=== PATIENT | male | born 1940 | race Caucasian/White ===

== ENCOUNTER 2023-02-20 11:27 | Emergency (ER) | payer MEDICARE, BC ==
[~2023-02-20] VITALS: Ht 170.2 cm; Wt 95.3 kg
[2023-02-20] MEDS ORDERED: PRED50TA PO (12:52)
[2023-02-20] MEDS ORDERED: AZIT500T PO (12:52)
[2023-02-20] MEDS ORDERED: predniSONE 50 MG TABLET ONE (12:56)
[2023-02-20] MEDS ORDERED: predniSONE 50 MG TABLET PO ONE (13:00)
[2023-02-20] MEDS ORDERED: AZITHROMYCIN 250 MG TABLET PO ONE (13:00)
[2023-02-20] MEDS ORDERED: AZITHROMYCIN 250 MG TABLET ONE (13:01)
[2023-02-20 13:03] VITALS: BP 122/70; TEMP 98; O2SAT 99
== END 2023-02-20 13:03 | disposition home or self-care (01) ==
LOC: ER 11:33
DX: J18.9 Pneumonia, unspecified organism (principal); R07.89 Other chest pain; E78.5 Hyperlipidemia, unspecified; I10 Essential (primary) hypertension; I25.10 Atherosclerotic heart disease of native coronary artery without angina pectoris; Z95.1 Presence of aortocoronary bypass graft; Z79.2 Long term (current) use of antibiotics; Z79.899 Other long term (current) drug therapy; Z20.822 Contact with and (suspected) exposure to COVID-19
CPT/HCPCS: 99284; 71046; 87426; 87804 ×2; J7512; A4663; Q0144

== ENCOUNTER 2024-03-22 17:45 | Emergency (ER) | payer MEDICARE, BC ==
[~2024-03-22] VITALS: Ht 170.2 cm; Wt 95.3 kg
[~2024-03-22 17:45] MED LIST: AZIT500T PO; PRED50TA PO
[2024-03-22 18:08] VITALS: O2SAT 97
[2024-03-22 18:43] LABS: BASOPHILS # (AUTO) 0.1 K/UL (0.0-0.2); BASOPHILS % (AUTO) 0.6 % (0.0-2.0); EOSINOPHILS # (AUTO) 0.6 K/uL (0.0-0.7); EOSINOPHILS % (AUTO) 6.4 % (0.0-7.0); LYMPHOCYTES # (AUTO) 3.1 K/uL (0.8-4.8); LYMPHOCYTES % (AUTO) 30.4 % (20.5-51.5); MEAN CORPUSCULAR HEMOGLOBIN 27.9 uug (23.8-33.4); MEAN CORPUSCULAR HGB CONC 33 g/dL (32.5-36.3); MEAN CORPUSCULAR VOLUME 83.7 fL (73.0-96.2); MONOCYTES % (AUTO) 9.9 % (0.0-11.0); NEUTROPHILS # (AUTO) 5.3 K/uL (1.8-8.9); NEUTROPHILS % (AUTO) 52.7 % (38.5-71.5); PLATELET COUNT (AUTO) 198 K/uL (152-348); RED BLOOD CELL COUNT(AUTO) 5.02 MIL/uL (4.06-5.63); RED CELL DISTRIBUTION WIDTH 13.8 % (12.1-16.2)
[2024-03-22 18:44] LABS: *BILIRUBIN,URIN NEGATIVE (NEGATIVE); *BLOOD, URINE NEGATIVE (NEGATIVE); *CLARITY,URINE CLEAR (CLEAR); *COLOR,URINE YELLOW (YELLOW); *KETONES,URINE 1+ (NEGATIVE); *PROTEIN,URINE NEGATIVE (NEGATIVE); *UROBILINOGEN,URINE 0.2 E.U./dl (NORMAL); LEUKOCYTE ESTERASE ,URINE NEGATIVE (NEGATIVE); NITRITE, URINE NEGATIVE (NEGATIVE); PH,URINE 5.5 (5.0-8.0); UGLUCOSE NEGATIVE (NEGATIVE)
[2024-03-22 18:46] LABS: RBC,URINE 0-3 /HPF (0-3)
[2024-03-22 18:47] LABS: WBC,URINE 0-3 /HPF (0-3)
[2024-03-22 18:53] LABS: ALANINE AMINOTRANSFERASE 21 U/L (16-63); ALBUMIN 3.7 g/dL (3.4-5.0); ALKALINE PHOSPHATASE 104 U/L (50-136); ASPARTATE AMINOTRANSFERASE 15 U/L (15-37); BILIRUBIN,DIRECT 0.2 mg/dL (0.0-0.2); BILIRUBIN,TOTAL 0.6 mg/dL (0.2-1.0); CALCIUM 9.2 mg/dL (8.5-10.1); CARBON DIOXIDE 24 mmol/L (21-32); CHLORIDE 106 mmol/L (98-107); GLUCOSE 109 mg/dL (74-106); POTASSIUM 4.1 mmol/L (3.5-5.1); SODIUM SERUM 137 mmol/L (136-145); TOTAL PROTEIN, SERUM 7.1 g/dL (6.4-8.2); UREA NITROGEN, BLOOD 29 mg/dL (7-18)
== END 2024-03-22 20:28 | disposition left against medical advice (07) ==
LOC: ER 17:47
DX: R05.9 Cough, unspecified (principal); M79.10 Myalgia, unspecified site; R53.83 Other fatigue; Z53.21 Procedure and treatment not carried out due to patient leaving prior to being seen by health care provider
CPT/HCPCS: 36415; 83605; 84484; 85025; 85730; 87040; A4606; A4663

== ENCOUNTER 2024-03-23 15:01 | Emergency (ER) | payer MEDICARE, BC ==
[~2024-03-23] VITALS: Ht 170.2 cm; Wt 95.3 kg
[2024-03-23 16:31] VITALS: BP 155/78; TEMP 98.6; O2SAT 98
== END 2024-03-23 16:32 | disposition home or self-care (01) ==
LOC: ER 15:01
DX: J06.9 Acute upper respiratory infection, unspecified (principal); E78.5 Hyperlipidemia, unspecified; Z98.890 Other specified postprocedural states; Z79.1 Long term (current) use of non-steroidal anti-inflammatories (NSAID); Z79.899 Other long term (current) drug therapy; Z20.822 Contact with and (suspected) exposure to COVID-19
CPT/HCPCS: 71045; A4606; A4663